=== PATIENT | male | born 2000 | race Two or more races ===

== ENCOUNTER 2024-10-22 22:31 | Emergency (ER) | payer OTHER ==
[~2024-10-22] VITALS: Ht 188 cm; Wt 90.9 kg
[2024-10-23] MEDS ORDERED: BENZ200C70 PO (06:31)
[2024-10-23 06:38] VITALS: BP 113/61; O2SAT 99
[2024-10-23 06:39] VITALS: TEMP 97.8
[2024-10-23] MEDS: BENZONATATE 100 MG CAPSULE PO ONE (06:42)
[2024-10-23] MEDS: ACETAMINOPHEN 500 MG TAB PO ONE (06:42)
== END 2024-10-23 06:48 | disposition home or self-care (01) ==
LOC: M ED 22:31
DX: B34.1 Enterovirus infection, unspecified (principal); Z79.899 Other long term (current) drug therapy